=== PATIENT | male | born 1955 | race Native Hawaiian/Other Pacific Islander ===

== ENCOUNTER 2016-07-24 10:49 | Inpatient (IN) | payer BC ==
[~2016-07-24] VITALS: Ht 182.9 cm; Wt 100.8 kg
[~2016-07-24 10:49] MED LIST: ALBUTEROL0.083 % IN; ASPIRIN ADULT L81 MG OR; BENZ100C8 PO; BRILINTA90 MG OR; CIPRO500 MG PO; FLOVENT HFA110 MCG IN; FLOVENT HFA220 MCG IN; FLUT110A2; LEVAQUIN500 MG OR; LIPITOR40 MG PO; LOSA50TA; LOSA50TA PO; MEDROL DOSEPAK4 MG OR; METO25TA4 PO; METO50TA27 PO; NITR0.4S2 SL; PRED10TA27 PO; PROVENTIL IN; PULMICORT90 MCG IN
[2016-07-24 13:11] LABS: PLATELET COUNT 324 K/uL (142-355)
[2016-07-24 13:14] LABS: POTASSIUM 4.2 mmol/L (3.6-5.2); SODIUM 133 mmol/L (136-145)
[2016-07-24 15:35] VITALS: BP 153/90; TEMP 97.9; Ht 182.9 cm; Wt 100.8 kg
[2016-07-24 20:00] VITALS: BP 145/89; TEMP 98
[2016-07-25 00:31] VITALS: BP 108/84; TEMP 97.9
[2016-07-25 04:40] LABS: PLATELET COUNT 319 K/uL (142-355)
[2016-07-25 04:45] LABS: POTASSIUM 4.6 mmol/L (3.6-5.2)
[2016-07-25 05:30] VITALS: BP 155/91; TEMP 97.9
[2016-07-25 08:00] VITALS: BP 117/74; TEMP 97.4
[2016-07-25 12:00] VITALS: BP 146/87; TEMP 97.6
[2016-07-25 16:00] VITALS: BP 150/83; TEMP 98
[2016-07-25 20:00] VITALS: BP 138/85; TEMP 97.6
[2016-07-26] VITALS: BP 133/80; TEMP 97.5
[2016-07-26 04:00] VITALS: BP 128/88; TEMP 97.4
[2016-07-26 05:20] LABS: PLATELET COUNT 313 K/uL (142-355)
[2016-07-26 05:56] LABS: POTASSIUM 4.5 mmol/L (3.6-5.2); SODIUM 132 mmol/L (136-145)
[2016-07-26 08:00] VITALS: BP 136/93; TEMP 97.6
[2016-07-26 12:00] VITALS: BP 122/72; TEMP 97.8
[2016-07-26 16:00] VITALS: BP 131/95; TEMP 98
== END 2016-07-26 17:36 | disposition home or self-care (01) | DRG 203 ==
LOC: MED/SURG 10:49
PROVIDERS: Emergency Medicine; ADMIT Internal Medicine
DX: J45.901 Unspecified asthma with (acute) exacerbation (principal); I25.10 Atherosclerotic heart disease of native coronary artery without angina pectoris; K21.9 Gastro-esophageal reflux disease without esophagitis; I10 Essential (primary) hypertension; J32.8 Other chronic sinusitis
CPT/HCPCS: 36415; 80053; 81000; 82550; 82948; 83880; 85027; 85379; 93005; 94640; 94664; 94760; 96366; 96367; 96372; 96374; J1650; J1940; J2920; J2930

== ENCOUNTER 2017-06-27 20:04 | Emergency (ER) | payer BC ==
[~2017-06-27] VITALS: Ht 182.9 cm; Wt 106.1 kg
[2017-06-27] MEDS ORDERED: ASPIR-LOW81 MG OR (20:25)
[2017-06-27] MEDS ORDERED: Z-PAK PO (20:26)
[2017-06-27] MEDS ORDERED: BRILINTA90 MG OR (20:29)
[2017-06-27 22:12] VITALS: BP 125/64; TEMP 98.4
== END 2017-06-27 22:19 | disposition home or self-care (01) ==
LOC: ED 20:04
DX: S39.012A Strain of muscle, fascia and tendon of lower back, initial encounter (principal); W17.89XA Other fall from one level to another, initial encounter; Y92.89 Other specified places as the place of occurrence of the external cause
CPT/HCPCS: 96372; 99283; J2175; J2550

== ENCOUNTER 2017-09-16 12:02 | Outpatient (CLI) | payer BC ==
[~2017-09-16 12:02] MED LIST changes: +ASPIR-LOW81 MG OR; +Z-PAK PO
== END 2017-09-16 21:49 | disposition home or self-care (01) ==
LOC: RAD 12:02
DX: M75.41 Impingement syndrome of right shoulder (principal)

== ENCOUNTER 2017-11-23 07:56 | Outpatient (CLI) | payer BC ==
[2017-11-23 08:15] LABS: PLATELET COUNT 278 K/uL (142-355)
[2017-11-23 08:50] LABS: POTASSIUM 4.3 mmol/L (3.6-5.2)
== END 2017-11-23 22:52 | disposition home or self-care (01) ==
LOC: LABW 07:56
PROVIDERS: Internal Medicine
DX: Z00.00 Encounter for general adult medical examination without abnormal findings (principal); Z11.59 Encounter for screening for other viral diseases; Z12.5 Encounter for screening for malignant neoplasm of prostate; E78.00 Pure hypercholesterolemia, unspecified; R79.89 Other specified abnormal findings of blood chemistry
CPT/HCPCS: 36415; 80053; 80061; 80074; 81000; 84153; 85027

== ENCOUNTER 2017-12-04 08:47 | Outpatient (CLI) | payer BC | END 2017-12-04 23:31 | disposition home or self-care (01) | LOC: US 08:47 | DX: Z13.6 Encounter for screening for cardiovascular disorders (principal) ==

== ENCOUNTER 2018-08-03 02:50 | Emergency (ER) | payer BC ==
[~2018-08-03] VITALS: Ht 177.8 cm; Wt 97.5 kg
[2018-08-03 03:50] VITALS: BP 146/90; TEMP 97
== END 2018-08-03 03:50 | disposition home or self-care (01) ==
LOC: ED 02:50
PROC: 0H97XZZ Drainage of Abdomen Skin, External Approach (ICD-10-PCS; principal; 2018-08-03)
DX: L72.3 Sebaceous cyst (principal)
CPT/HCPCS: 87070; 87077; 87186; 87205; 96372; 99283

== ENCOUNTER 2020-05-09 12:17 | Outpatient (CLI) | payer BC | END 2020-05-09 22:13 | disposition home or self-care (01) | LOC: LAB 12:17 | PROVIDERS: ATTEND Internal Medicine | DX: E11.9 Type 2 diabetes mellitus without complications (principal) | CPT/HCPCS: 83036 ==

== ENCOUNTER 2022-01-26 11:38 | Outpatient (CLI) | payer BC | END 2022-01-26 19:09 | disposition home or self-care (01) | LOC: RAD 11:38 | PROVIDERS: ATTEND Internal Medicine | DX: J40 Bronchitis, not specified as acute or chronic (principal) ==

== ENCOUNTER → 2022-04-10 | Outpatient (CLI) | payer BC ==
[2022-04-10 15:11] LABS: PLATELET COUNT 248 K/uL (142-355)
[2022-04-10 15:28] LABS: POTASSIUM 4.5 mmol/L (3.6-5.2)
== END ==
LOC: LAB 14:34
PROVIDERS: ATTEND Internal Medicine
DX: I10 Essential (primary) hypertension (principal); R73.9 Hyperglycemia, unspecified; E29.1 Testicular hypofunction
CPT/HCPCS: 80053; 80061; 81002; 83036; 84153; 84402; 84403; 84439; 84443; 85027